=== PATIENT | male | born 1945 | race Caucasian/White ===

== ENCOUNTER → 2024-05-01 | Outpatient (CLI) | payer MEDICARE, BC, SELFPAY ==
[2024-05-01 09:40] LABS: Alanine Aminotransferase 20 U/L (10-49); Albumin, Serum 4.5 gm/dL (3.4-4.8); Alkaline Phosphatase 78 U/L (46-116); Anion Gap 10 (7-16); Aspartate Amino Transferase 13 U/L (0-34); BUN/Creatinine Ratio 17 Ratio (12-20); Bilirubin,Total 1.3 mg/dL (0.3-1.2); Blood Urea Nitrogen 25 mg/dL (9-23); Carbon Dioxide 25.3 mMol/L (20.0-31.0); Chloride 101 mMol/L (98-107); Creatinine (Component) 1.5 mg/dL (0.6-1.3); Globulin 2.2 gm/dL (2.3-3.5); Glucose 203 mg/dL (74-106); Osmolality,Calculated 282 (275-295); Potassium 3.9 mMol/L (3.4-5.1); Sodium 136 mMol/L (136-145); Total Protein 6.7 gm/dL (5.7-8.2); eGFR 47 See Note
== END | disposition home or self-care (01) ==
LOC: COPL 07:23
PROVIDERS: PCP Family Medicine; Referring Provider Family Medicine; Visit Provider Family Medicine
DX: R79.89 Other specified abnormal findings of blood chemistry (principal); I10 Essential (primary) hypertension
CPT/HCPCS: 36415; 80053

== ENCOUNTER → 2024-05-03 | Outpatient (CLI) | payer MEDICARE, BC, SELFPAY ==
--- NOTE | 2024-05-03 12:40 | XR_ITS ---
Examination: Bone densitometry Date and time of exam:May 03, 2024 at 1221 hours INDICATIONS: 71-year-old male with diagnosis age related osteoporosis Technique: Lumbar spine and hip total bone mineralization values of an calculated. Peak reference and age match control results have been displayed. Findings: Lumbar spine total bone mineralization is1.429 gm/cm2. This is 3.1 standard deviations above peak reference. This is 4.2 standard deviations above age-matched controls. Hip total bone mineralization is 1.278 gm/cm2 This is 1.6 standard deviations above peak reference. This is 2.6 standard deviations above age-matched controls Impression: There is normal mineralization based on lumbar spine measurements. There is normal mineralization based on hip measurements
== END | disposition home or self-care (01) ==
LOC: CDIM 12:05
PROVIDERS: PCP Family Medicine; Referring Provider Family Medicine; Visit Provider Family Medicine
DX: M81.0 Age-related osteoporosis without current pathological fracture (principal)
CPT/HCPCS: 77080

== ENCOUNTER → 2024-06-20 | Outpatient (CLI) | payer MEDICARE, BC, SELFPAY ==
[2024-06-20 07:43] LABS: Collection Type, Urine Clean Catch; Squamous Epithelial Cell,Urine 0 /hpf (0-5)
[2024-06-20 08:11] LABS: Basophils # (Auto) 0.1 Thou/mm3 (0.0-0.2); Basophils % (Auto) 1 % (0-2.5); Eosinophils # (Auto) 0.1 Thou/mm3 (0.0-0.5); Eosinophils % (Auto) 1 % (0-10); Hematocrit 38.8 % (41.0-53.0); Immature Granulocytes % (Auto) 0 % (0-0); Immature Granulocytes Auto 0.02 Thou/mm3 (0.00-0.00); Lymphocytes # (Auto) 1.9 Thou/mm3 (1.0-4.8); Lymphocytes % (Auto) 21 % (10-50); Mean Corpuscular HGB Conc 33.5 g/dl (31.0-37.0); Mean Corpuscular Hemoglobin 30.4 pg (25.0-35.0); Mean Corpuscular Volume 91 fL (80-100); Monocytes # (Auto) 0.7 Thou/mm3 (0.0-0.8); Monocytes % (Auto) 8 % (0-12); Neutrophils # (Auto) 6.1 Thou/mm3 (1.8-7.7); Neutrophils % (Auto) 69 % (37-80); Nucleated Red Blood Cell % 0 /100 WBC (0); Platelet Count 155 Thou/mm3 (140-440); RDW Standard Deviation 42.6 fL (35.1-43.9); Red Blood Count 4.28 Miln/mm3 (4.50-5.90); White Blood Count 8.8 Thou/mm3 (3.8-10.6)
[2024-06-20 08:16] LABS: Bilirubin,Urine Negative (Negative); Blood,Urine Negative (Negative); Clarity,Urine Clear (Clear/Hazy); Color,Urine Colorless (Lt Yel-Yel); Glucose, Urine Negative (Negative); Ketones,Urine Negative (Negative); Leukocyte Esterase,Urine Negative (Negative); Nitrite,Urine Negative (Negative); Protein,Urine Negative (Neg - Trace); RBC,Urine 1 /hpf (0-3); Urobilinogen,Urine Negative mg/dL (0.0-1.0); WBC,Urine 1 /hpf (0-5)
[2024-06-20 08:40] LABS: Creatinine MALB Rnd Ur 43 mg/dL (30-125); Microalbumin Creat Ratio 21 mg/gCrea (<30); Microalbumin, Random Urine 9 mg/L (0-300)
[2024-06-20 08:44] LABS: Glucose Estimated Average 157 mg/dL (80-131); Hemoglobin A1C 7.1 % Hgb (4.8-6.0)
[2024-06-20 08:52] LABS: Alanine Aminotransferase 31 U/L (10-49); Albumin, Serum 4.5 gm/dL (3.4-4.8); Albumin/Globulin Ratio 1.9 (1.2-2.2); Alkaline Phosphatase 69 U/L (46-116); Anion Gap 9 (7-16); Aspartate Amino Transferase 35 U/L (0-34); BUN/Creatinine Ratio 18 Ratio (12-20); Blood Urea Nitrogen 23 mg/dL (9-23); Calcium 9.1 mg/dL (8.3-10.6); Calcium (Corrected) 9.1 mg/dL (8.5-10.1); Carbon Dioxide 28.3 mMol/L (20.0-31.0); Chloride 101 mMol/L (98-107); Cholesterol 89 mg/dL (132-200); Creatinine (Component) 1.3 mg/dL (0.6-1.3); Globulin 2.4 gm/dL (2.3-3.5); Glucose 140 mg/dL (74-106); HDL Cholesterol 45 mg/dL (40-60); LDL Cholesterol,Calculated 24 mg/dL (0-130); Osmolality,Calculated 281 (275-295); Potassium 4.2 mMol/L (3.4-5.1); Sodium 138 mMol/L (136-145); Thyroid Stimulating Hormone 6.09 uIU/mL (0.55-4.78); Total Protein 6.9 gm/dL (5.7-8.2); Triglycerides 101 mg/dL (30-150); eGFR 56 See Note
[2024-06-20 09:41] LABS: Prostate Specific Antigen 2.47 ng/mL (0-4.00)
== END | disposition home or self-care (01) ==
LOC: COPL 06:51
PROVIDERS: PCP Family Medicine; Referring Provider Family Medicine; Visit Provider Internal Medicine Cardiovascular Disease
DX: Z00.00 Encounter for general adult medical examination without abnormal findings (principal); I12.9 Hypertensive chronic kidney disease with stage 1 through stage 4 chronic kidney disease, or unspecified chronic kidney disease; E11.22 Type 2 diabetes mellitus with diabetic chronic kidney disease; N18.31 Chronic kidney disease, stage 3a; E78.2 Mixed hyperlipidemia; E11.59 Type 2 diabetes mellitus with other circulatory complications
CPT/HCPCS: 36415; 80053; 80061; 81001; 82043; 82570; 83036; 84153; 84443; 85025

== ENCOUNTER 2024-09-24 06:39 | Day surgery (SDC) | payer MEDICARE, BC, SELFPAY ==
[2024-09-20 10:35] VITALS: BMI 24.4
--- NOTE | 2024-09-21 07:00 | EKG_ITS ---
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
[2024-09-21 11:37] LABS: Basophils % (Auto) 1 % (0-2.5); Eosinophils # (Auto) 0.1 Thou/mm3 (0.0-0.5); Eosinophils % (Auto) 2 % (0-10); Hematocrit 37.4 % (41.0-53.0); Hemoglobin 12.7 g/dL (13.5-16.0); Immature Granulocytes % (Auto) 0 % (0-0); Immature Granulocytes Auto 0.03 Thou/mm3 (0.00-0.00); Lymphocytes # (Auto) 1.9 Thou/mm3 (1.0-4.8); Lymphocytes % (Auto) 26 % (10-50); Mean Corpuscular Hemoglobin 30.8 pg (25.0-35.0); Mean Corpuscular Volume 91 fL (80-100); Monocytes # (Auto) 0.9 Thou/mm3 (0.0-0.8); Monocytes % (Auto) 12 % (0-12); Neutrophils # (Auto) 4.4 Thou/mm3 (1.8-7.7); Neutrophils % (Auto) 59 % (37-80); Nucleated Red Blood Cell % 0 /100 WBC (0); Platelet Count 173 Thou/mm3 (140-440); RDW Standard Deviation 44.7 fL (35.1-43.9); Red Blood Count 4.12 Miln/mm3 (4.50-5.90); White Blood Count 7.3 Thou/mm3 (3.8-10.6)
[2024-09-21 12:18] LABS: Anion Gap 7 (7-16); BUN/Creatinine Ratio 13 Ratio (12-20); Blood Urea Nitrogen 19 mg/dL (9-23); Calcium 9.5 mg/dL (8.3-10.6); Carbon Dioxide 28.4 mMol/L (20.0-31.0); Chloride 105 mMol/L (98-107); Creatinine (Component) 1.5 mg/dL (0.6-1.3); Estimated Creatinine Clearance 43.2 mL/min (>60); Glucose 122 mg/dL (74-106); Osmolality,Calculated 282 (275-295); Potassium 4.2 mMol/L (3.4-5.1); Sodium 140 mMol/L (136-145); eGFR 47 See Note
[2024-09-21 12:20] LABS: Partial Thromboplastin Time 27.9 Seconds (22.0-36.0); Prothrombin Time 11.3 Seconds (9.0-12.2)
[2024-09-24] VITALS (15 sets, daily range): BP systolic 135–175; BP diastolic 58–89; PULSE 17–54; RESP 12–18; TEMP 36.2–36.7; O2SAT 94–97
[2024-09-24] MEDS: ACETAMINOPHEN 325 MG TABLET 650 MG PO (12:07)
--- NOTE | 2024-09-24 17:46 | PC.NURSE ---
0901 patient is awake, alert, breathing unlabored, S/P LHC and RHC by Dr. Jacobs, arterial sheath removed, angioseal closure device has been placed to right groin. Venous sheath in place, no bleeding noted to right groin. Report received from Patrick ROMEO, patient to recovery for 3 hrs. ok to remove venous sheath in 1hr. 1112 venous sheath removed by Kayce Ventura RN, pressure applied for 10 minutes 1238 patient awake, alert, breathing unlabored, no bleeding or hematoma noted, discharge instructions given to patient and , patient discharged home in wheelchair with all belongings.
--- NOTE | 2024-09-24 18:31 | ESOP_ITS ---
RE: GITA CRAMER : 1945 DATE OF OPERATION: 09/24/2024 PROCEDURES PERFORMED: 1. Diagnostic right and left heart cardiac evaluation, selective coronary angiogram, left ventricular angiogram, CPT 88437. 2. Selective cannulation of the right internal mammary artery, second-order branch from the aorta, CPT 03308. 3. Selective cannulation of the left internal mammary artery, second-order branch from the aorta, CPT 67561. 4. Left and right internal mammary angiogram. 5. Ultrasound-guided access to the right femoral artery. 6. Attempted PTCA of the left anterior descending artery via right internal mammary artery bypass graft unsuccessful due to inability to cross the lesion successfully. Preprocedure stenosis 100% with collateral, postprocedure stenosis 100% with collateral. Preprocedure NILE flow 1, postprocedure NILE flow 1, CPT 49768. 7. Conscious sedation 1-hour duration. DIAGNOSES: Aortic stenosis, coronary artery disease, angina pectoris, and abnormal stress test. HISTORY AND INDICATIONS: The patient is a 79-year-old male with past medical history of CAD, status post bypass graft surgery, DORIE to LAD, BARRETO to circumflex artery. He has been doing fairly well until recently. He has been having shortness of breath on exertion and found to have severe aortic stenosis. Aortic velocity 3.5 m/sec. There is also slightly abnormal nuclear imaging showing anterior apical ischemia. Hence coronary angiogram was recommended to assess the patient is a candidate for coronary intervention and revascularization. DESCRIPTION OF PROCEDURE: The patient was brought to cardiac catheterization laboratory. He was given 2 mg of Versed and 100 mcg fentanyl for conscious sedation. Right femoral approach was taken. Right femoral artery was cannulated with micropuncture technique. Right femoral vein was cannulated using ultrasound guidance and 7-[place] sheath introduced. Right heart catheterization was performed with [place] catheter. Cardiac output was obtained and PA wedge pressure was recorded. Left heart catheterization was performed by FR4 guiding catheter and left ventricular angiogram was performed. Pullback pressure was measured. Diagnostic selective right and left coronary angiogram performed by FR4 and FL4 diagnostic catheter. Right internal mammary artery selectively engaged using FR4 diagnostic catheter. Right internal mammary angiogram was performed. Left internal mammary angiogram was also performed using FR4 diagnostic catheter. Multiple loops were obtained. Subsequent intervention undertaken. Cardiac catheterization showed following findings: The hemodynamics were as follows: The right atrial pressure is found to be normal at 5 mmHg, right ventricular pressure 28/5, aortic pressure 106/57 mmHg. Subsequent aortic pressure during pullback was 150/47. Left ventricular pressure 182/5, end diastolic was 29 with mean gradient of 32 mmHg, peak gradient 35 mmHg across the aortic valve. Cardiac output was 4.5 L/min. Aortic valve area approximately 0.8 cm2. There is severe aortic stenosis. Left ventricular angiogram showed normal left ventricular wall motion and ejection fraction of 55%-60%. Coronary angiogram showed [place] right coronary artery. It is totally occluded in the proximal segment. There is no graft to the right coronary artery. Left internal mammary artery bypass is attached to the circumflex artery, which is widely patent. Right internal mammary artery is attached to the distal left anterior descending artery diagonal branches. It is widely patent, but there is evidence of distal left anterior descending artery showed total occlusion in the small vessel. Following diagnostic procedure, PCI was undertaken. The patient was given IV additional heparin. Total of 6000 units heparin given. ACT was therapeutic. A 6-Kosovan sheath introduced. Right internal mammary artery was cannulated by 6-Kosovan FR4 guiding catheter. Purification Operator Helper 50 guidewire was used. The attempts were made to cross the lesion, but it was a near total occlusion, unable to cross the lesion because of total occlusion and inadequate guide support. [place] like the patient will be continued on medical management since it is a small vessel, may not benefit from any more aggressive therapy, especially considering there is diffuse disease. The iliofemoral angiogram showed evidence of widely patent femoral artery. Hence Angio-Seal deployed successfully. SUMMARY OF FINDINGS: 1. Severe calcific aortic stenosis, aortic valve area 0.8 cm2, mean gradient 32 mmHg. 2. Widely patent BARRETO to circumflex artery and DORIE to LAD. 3. Total occlusion of the distal left anterior descending artery filling by collaterals, unsuccessful angioplasty due to inability to cross the lesion successfully. Preprocedure stenosis 100%, postprocedure 100% with collaterals, NILE flow pre and post is 1. 4. The patient was recommended medical management. If he continues to be symptomatic, we will recommend TAVR procedure for aortic valve replacement. DT: 13:12:51 TT: 18:30:00 Ref: [id number] - TID: [id number]
== END 2024-09-24 12:38 | disposition home or self-care (01) ==
PROVIDERS: PCP Family Medicine; Referring Provider Internal Medicine Cardiovascular Disease; Visit Provider Internal Medicine Cardiovascular Disease
PROC: (CPT 93460; principal; 2024-09-24 07:30)
DX: I25.119 Atherosclerotic heart disease of native coronary artery with unspecified angina pectoris (principal); I25.82 Chronic total occlusion of coronary artery; I35.0 Nonrheumatic aortic (valve) stenosis; Z95.1 Presence of aortocoronary bypass graft; Z01.810 Encounter for preprocedural cardiovascular examination
CPT/HCPCS: 93460; 36415; 80048; 85025; 85347; 85610; 85730; 93005; 99152; 99153; A4649; C1760; C1769; C1887; C1894; J0171; J0461; J1643; J2250; J2310; J2371; J3010; J3490; Q9967; A9270

== ENCOUNTER → 2024-10-04 | Outpatient (CLI) | payer MEDICARE, BC, SELFPAY ==
[2024-10-04 09:00] LABS: Glucose Estimated Average 140 mg/dL (80-131); Hemoglobin A1C 6.5 % Hgb (4.8-6.0)
[2024-10-04 09:27] LABS: Alanine Aminotransferase 18 U/L (10-49); Albumin, Serum 4.3 gm/dL (3.4-4.8); Albumin/Globulin Ratio 1.8 (1.2-2.2); Alkaline Phosphatase 67 U/L (46-116); Anion Gap 5 (7-16); Aspartate Amino Transferase 24 U/L (0-34); BUN/Creatinine Ratio 16 Ratio (12-20); Bilirubin,Total 0.8 mg/dL (0.3-1.2); Blood Urea Nitrogen 23 mg/dL (9-23); Calcium 8.6 mg/dL (8.3-10.6); Calcium (Corrected) 8.6 mg/dL (8.5-10.1); Carbon Dioxide 26.9 mMol/L (20.0-31.0); Cardiac Risk Estimate 2.1 RATIO (4.0-6.7); Chloride 103 mMol/L (98-107); Cholesterol 80 mg/dL (132-200); Creatinine (Component) 1.4 mg/dL (0.6-1.3); Globulin 2.4 gm/dL (2.3-3.5); Glucose 136 mg/dL (74-106); HDL Cholesterol 38 mg/dL (40-60); LDL Cholesterol,Calculated 25 mg/dL (0-130); Osmolality,Calculated 275 (275-295); Potassium 4.4 mMol/L (3.4-5.1); Sodium 135 mMol/L (136-145); Total Protein 6.7 gm/dL (5.7-8.2); Triglycerides 87 mg/dL (30-150); eGFR 51 See Note
== END | disposition home or self-care (01) ==
LOC: COPL 07:02
PROVIDERS: PCP Family Medicine; Referring Provider Family Medicine; Visit Provider Family Medicine
DX: I12.9 Hypertensive chronic kidney disease with stage 1 through stage 4 chronic kidney disease, or unspecified chronic kidney disease (principal); E11.22 Type 2 diabetes mellitus with diabetic chronic kidney disease; N18.31 Chronic kidney disease, stage 3a; E11.59 Type 2 diabetes mellitus with other circulatory complications; E78.2 Mixed hyperlipidemia
CPT/HCPCS: 36415; 80053; 80061; 83036

== ENCOUNTER 2024-10-16 06:36 | Day surgery (SDC) | payer MEDICARE, BC, SELFPAY ==
[2024-10-12 16:50] VITALS: BMI 24.4
--- NOTE | 2024-10-15 07:52 | EKG_ITS ---
[facility] (Formerly [facility])[3] Test Date: 2024-10-15 Pat Name: GITA CRAMER Department: Room: - Gender: Male College Dean: QIAN : 1945 Requested By: Eneida Arana Order Number: [id number] Reading MD: Eneida Arana Measurements Intervals [place] Rate: 57 P: 46 NM: 151 QRS: 70 QRSD: 97 T: 88 QT: 429 QTc: 419 Interpretive Statements SINUS BRADYCARDIA MODERATE T-WAVE ABNORMALITY, CONSIDER ANTEROLATERAL ISCHEMIA [-0.1+ mV T WAVE IN V3-V6] Compared to ECG 09/21/2024 11:05:31 No significant changes /store/S0/[id number]/ecg/[id number].pdf
[2024-10-15 08:57] LABS: Basophils % (Auto) 1 % (0-2.5); Eosinophils # (Auto) 0.1 Thou/mm3 (0.0-0.5); Eosinophils % (Auto) 2 % (0-10); Hematocrit 35.8 % (41.0-53.0); Hemoglobin 12.1 g/dL (13.5-16.0); Immature Granulocytes % (Auto) 1 % (0-0); Immature Granulocytes Auto 0.03 Thou/mm3 (0.00-0.00); Lymphocytes # (Auto) 1.3 Thou/mm3 (1.0-4.8); Lymphocytes % (Auto) 20 % (10-50); Mean Corpuscular HGB Conc 33.8 g/dl (31.0-37.0); Mean Corpuscular Hemoglobin 30.9 pg (25.0-35.0); Mean Corpuscular Volume 92 fL (80-100); Monocytes # (Auto) 0.6 Thou/mm3 (0.0-0.8); Monocytes % (Auto) 9 % (0-12); Neutrophils # (Auto) 4.4 Thou/mm3 (1.8-7.7); Neutrophils % (Auto) 68 % (37-80); Nucleated Red Blood Cell % 0 /100 WBC (0); Platelet Count 161 Thou/mm3 (140-440); RDW Standard Deviation 45.1 fL (35.1-43.9); Red Blood Count 3.91 Miln/mm3 (4.50-5.90); White Blood Count 6.4 Thou/mm3 (3.8-10.6)
[2024-10-15 09:14] LABS: Anion Gap 8 (7-16); BUN/Creatinine Ratio 17 Ratio (12-20); Blood Urea Nitrogen 24 mg/dL (9-23); Calcium 8.4 mg/dL (8.3-10.6); Chloride 105 mMol/L (98-107); Creatinine (Component) 1.4 mg/dL (0.6-1.3); Estimated Creatinine Clearance 46.3 mL/min (>60); Glucose 222 mg/dL (74-106); Osmolality,Calculated 290 (275-295); Potassium 4.1 mMol/L (3.4-5.1); Sodium 140 mMol/L (136-145); eGFR 51 See Note
[2024-10-15 09:16] LABS: INR 1.1 (0.9-1.3); Partial Thromboplastin Time 28.3 Seconds (22.0-36.0); Prothrombin Time 11.5 Seconds (9.0-12.2)
[2024-10-16] VITALS (13 sets, daily range): BP systolic 127–155; BP diastolic 56–75; PULSE 47–52; RESP 15–21; TEMP 36.7–37; O2SAT 93–95
--- NOTE | 2024-10-17 23:20 | ESOP_ITS ---
RE: GITA CRAMER : 1945 DATE OF OPERATION: 10/16/2024 PROCEDURES PERFORMED: 1. Selective coronary angiogram, selective bypass graft angiogram to right coronary artery, CPT code 14975. 2. Selective catheter placement in the ascending aorta, thoracic aorta, and thoracic and abdominal aortic angiogram, CPT code 97599. 4. Conscious sedation for 1-hour duration. 5. Ultrasound-guided access of right radial artery. DIAGNOSES: Coronary artery disease status post bypass graft surgery, severe aortic stenosis and bypass graft occlusion, previous stent placement to bypass graft. HISTORY AND INDICATIONS: The patient is a 79-year-old male with a history of bypass graft surgery nearly 40 years ago, vein graft to RCA and DORIE to LAD, BARRETO to circumflex and he has severe calcific aortic stenosis. Coronary angiogram recently showed the patient had mammary arteries patent. There was disease of distal LAD, but RCA bypass could not be cannulated previously and because of the contrast used, this should be performed before recommending TAVR procedure. RCA bypass graft had a stent placement in the HAY[place] prior and do not have the right coronary artery bypass graft angiogram, coronary angiogram was recommended. DESCRIPTION OF PROCEDURE: The patient was brought to cardiac catheterization laboratory. He was given 2 mg Versed and 50 mcg of fentanyl for conscious sedation. Right radial artery cannulated with micropuncture techniques. A 6-[place] Glidesheath was introduced. Radial cocktail was given using a multipurpose A1 diagnostic catheter. Right coronary artery was selectively cannulated. Right coronary artery bypass graft was selectively cannulated. Right coronary bypass graft angiogram was performed successfully. Multiple loops were obtained. Subsequently, a 5- [place] pigtail _ ascending aorta, thoracic aorta angiogram, and descending thoracic angiogram performed. The patient had no complications. TR band is applied. Hemostasis secured. FINDINGS: 1. Right coronary artery is occluded. 2. Vein graft to the right coronary artery is widely patent. Giving supplied PDA, PL branch, there is a stent in the posterolateral branch. It is widely patent. No re- stenosis. 3. The patient's aorta showed mild dilation of the ascending aorta, but aortic valve with heavy calcification. No significant aortic regurgitation. Ascending aorta is normal. Thoracic aorta is normal. No evidence of aneurysms. SUMMARY OF FINDINGS AND SUGGESTIONS: 1. Totally occluded right coronary artery [place] RCA. 2. Widely patent right coronary artery vein bypass graft. 3. Widely patent stent involving posterolateral branch and RCA. 4. Mildly dilated aorta with no evidence of aortic aneurysm. RECOMMENDATIONS: The patient recommended to have aortic valve replacement, TAVR procedure electively since he has symptomatic severe calcific aortic stenosis. DT: 12:37:19 TT: 13:52:00 Ref: [id number] - TID: [id number] [facility]
== END 2024-10-16 11:57 | disposition home or self-care (01) ==
PROVIDERS: PCP Family Medicine; Referring Provider Internal Medicine Cardiovascular Disease; Visit Provider Internal Medicine Cardiovascular Disease
PROC: (CPT 93455; principal; 2024-10-16 07:30)
PROC: (CPT 93455; 2024-10-16 07:30)
DX: I35.0 Nonrheumatic aortic (valve) stenosis (principal); I25.82 Chronic total occlusion of coronary artery; Z95.1 Presence of aortocoronary bypass graft; Z01.810 Encounter for preprocedural cardiovascular examination
CPT/HCPCS: 93455; 36221; 36415; 80048; 85025; 85610; 85730; 93005; 99152; A4649; C1769; C1894; J0153; J0171; J0282; J0461; J1643; J2250; J2310; J2371; J3010; J3490; Q9967; C1725; J2305

== ENCOUNTER → 2024-12-03 | Outpatient (CLI) | payer MEDICARE, BC, SELFPAY ==
[2024-12-03 12:20] LABS: Magnesium 1.5 mg/dL (1.6-2.6)
== END | disposition home or self-care (01) ==
LOC: COPL 09:56
PROVIDERS: PCP Family Medicine; Referring Provider Internal Medicine Cardiovascular Disease; Visit Provider Internal Medicine Cardiovascular Disease
DX: I35.0 Nonrheumatic aortic (valve) stenosis (principal); I10 Essential (primary) hypertension; E11.9 Type 2 diabetes mellitus without complications; R06.02 Shortness of breath
CPT/HCPCS: 36415; 83735

== ENCOUNTER → 2025-02-13 | Outpatient (CLI) | payer MEDICARE, BC, SELFPAY ==
[2025-02-13 08:34] LABS: Glucose Estimated Average 151 mg/dL (80-131); Hemoglobin A1C 6.9 % Hgb (4.8-6.0)
[2025-02-13 08:49] LABS: Alanine Aminotransferase 18 U/L (10-49); Albumin, Serum 4.3 gm/dL (3.4-4.8); Albumin/Globulin Ratio 1.8 (1.2-2.2); Alkaline Phosphatase 65 U/L (46-116); Anion Gap 10 (7-16); Aspartate Amino Transferase 28 U/L (0-34); BUN/Creatinine Ratio 14 Ratio (12-20); Bilirubin,Total 0.6 mg/dL (0.3-1.2); Blood Urea Nitrogen 17 mg/dL (9-23); Calcium 9.5 mg/dL (8.3-10.6); Calcium (Corrected) 9.5 mg/dL (8.5-10.1); Carbon Dioxide 26.1 mMol/L (20.0-31.0); Cardiac Risk Estimate 2.5 RATIO (4.0-6.7); Chloride 101 mMol/L (98-107); Cholesterol 107 mg/dL (132-200); Creatinine (Component) 1.2 mg/dL (0.6-1.3); Globulin 2.4 gm/dL (2.3-3.5); Glucose 147 mg/dL (74-106); HDL Cholesterol 43 mg/dL (40-60); LDL Cholesterol,Calculated 46 mg/dL (0-130); Osmolality,Calculated 278 (275-295); Potassium 4.1 mMol/L (3.4-5.1); Sodium 137 mMol/L (136-145); Total Protein 6.7 gm/dL (5.7-8.2); Triglycerides 90 mg/dL (30-150); Uric Acid 6.3 mg/dL (3.7-9.2); eGFR > 60 See Note
== END | disposition home or self-care (01) ==
LOC: COPL 07:12
PROVIDERS: PCP Family Medicine; Referring Provider Family Medicine; Visit Provider Internal Medicine Cardiovascular Disease
DX: E11.59 Type 2 diabetes mellitus with other circulatory complications (principal); I25.10 Atherosclerotic heart disease of native coronary artery without angina pectoris; E78.2 Mixed hyperlipidemia; I10 Essential (primary) hypertension; E79.0 Hyperuricemia without signs of inflammatory arthritis and tophaceous disease
CPT/HCPCS: 36415; 80053; 80061; 83036; 84550